=== PATIENT | male | born 1990 | race African-American/Black ===

== ENCOUNTER 2016-06-20 15:00 | Emergency (ER) | payer SELFPAY ==
[~2016-06-20] VITALS: Ht 182.9 cm; Wt 97.4 kg
[2016-06-20 15:09] VITALS: BP 145/93
[2016-06-20] MEDS ORDERED: AZITHROMYCIN 500 MG TABLET ONE (15:27)
[2016-06-20] MEDS ORDERED: CEFTRIAXONE 250 MG ONE (15:27)
[2016-06-20] MEDS ORDERED: LIDOCAINE 1%, 20ML ONE (15:27)
[2016-06-20] MEDS ORDERED: CEFTRIAXONE 250 MG IM ONE ×2 (15:30)
[2016-06-20] MEDS ORDERED: AZITHROMYCIN 500 MG TABLET PO ONE (15:30)
== END 2016-06-20 16:24 | disposition home or self-care (01) ==
LOC: ED 16:18
DX: R30.0 Dysuria (principal)
CPT/HCPCS: 81003; 96372; 99283; J0696

== ENCOUNTER 2017-03-06 10:24 | Emergency (ER) | payer OTHER ==
[~2017-03-06] VITALS: Ht 182.9 cm; Wt 95.7 kg
[2017-03-06 11:27] LABS: CULTURE INDICATED? YES; MICROSCOPIC INDICATED
[2017-03-06 12:03] VITALS: BP 138/99
== END 2017-03-06 12:25 | disposition home or self-care (01) ==
LOC: ED 12:15
DX: R30.0 Dysuria (principal); M54.5 Low back pain
CPT/HCPCS: 72110; 81001; 87086; 87491; 87591; 99285